=== PATIENT | female | born 1950 | race Asian ===

== ENCOUNTER 2023-06-22 17:38 | Inpatient (IN) | payer MEDICAID ==
[~2023-06-22] VITALS: Ht 149.9 cm; Wt 54.4 kg
[2023-06-22 17:44] VITALS: BP_SYST 182; PULSE 67; RESP 19; TEMP 98; O2SAT 99
[2023-06-22 19:08] LABS: BASOPHILS # (AUTO) 0.2 K/uL (0.0-0.2); EOSINOPHILS # (AUTO) 0.7 K/uL (0.0-0.4); EOSINOPHILS % (AUTO) 4.3 % (0.0-4.0); HEMATOCRIT 36.2 % (36-48); LYMPHOCYTES # (AUTO) 3.4 K/uL (1.0-5.5); LYMPHOCYTES % (AUTO) 21.5 % (20.5-51.5); MEAN CORPUSCULAR HEMOGLOBIN 31 pg (27-31); MEAN CORPUSCULAR HGB CONC 33 % (32-36); MEAN CORPUSCULAR VOLUME 95 fL (79.0-98.0); MONOCYTES # (AUTO) 1.2 K/uL (0.0-1.0); MONOCYTES % (AUTO) 7.6 % (1.7-9.3); NEUTROPHILS # (AUTO) 10.3 K/uL (1.8-7.7); NEUTROPHILS % (AUTO) 65.6 % (40.0-70.0); PLATELET COUNT (AUTO) 322 K/uL (130-430); RED BLOOD CELL COUNT(AUTO) 3.81 MIL/uL (4.2-6.2); WHITE BLOOD COUNT (AUTO) 15.7 K/uL (4.8-10.8)
[2023-06-22 19:28] LABS: ANION GAP 12 (5-15); CALCIUM 11.2 mg/dL (8.4-11.0); CARBON DIOXIDE 32 mmol/L (23-29); CHLORIDE 98 mmol/L (98-107); CREATININE 4.32 mg/dL (0.55-1.30); GLUCOSE 58 mg/dL (74-106); SODIUM SERUM 142 mmol/L (136-145); UREA NITROGEN, BLOOD 17 mg/dL (8-21)
[2023-06-22 19:43] LABS: POTASSIUM 2.7 mmol/L (3.5-5.1)
[2023-06-22] MEDS ORDERED: POTASSIUM CHLORIDE 20 MEQ TABLET.ER PO ONE (20:00)
[2023-06-22] MEDS ORDERED: CLON0.1T PO (21:09)
[2023-06-22] MEDS ORDERED: CALC0.253 PO (21:09)
[2023-06-22] MEDS ORDERED: NIFE-76 PO (21:09)
[2023-06-22] MEDS ORDERED: EPOE20005 (21:09)
[2023-06-22] MEDS ORDERED: METO-542 PO (21:09)
[2023-06-22] MEDS ORDERED: PANT40TA45 PO (21:09)
[2023-06-22] MEDS ORDERED: SUCR1TAB2 PO (21:09)
[2023-06-22] MEDS ORDERED: IRBE300T40 (21:09)
[2023-06-22] MEDS ORDERED: NL (21:09)
[2023-06-22] MEDS ORDERED: ATOR20TA64 PO (21:09)
[2023-06-22] MEDS ORDERED: METO5TAB86 (21:09)
[2023-06-22] MEDS ORDERED: CALC667C4 PO (21:09)
[2023-06-22] MEDS ORDERED: FOLI-43 PO (21:09)
[2023-06-22] MEDS ORDERED: INSU100I26 SUBCUT (21:09)
[2023-06-22] MEDS ORDERED: FOLI0.8T42 PO (21:11)
[2023-06-22] MEDS ORDERED: ACET-2634 PO (21:13)
[2023-06-22] MEDS ORDERED: MONT-40 PO (21:14)
[2023-06-22] MEDS ORDERED: IBUP-1969 PO (21:18)
[2023-06-22] MEDS ORDERED: hydrALAZINE HCL 20 MG/ML VIAL IVP ONE (21:45)
[2023-06-22] MEDS ORDERED: D10W 1,000 ML IV SCH (22:30)
[2023-06-22 23:12] LABS: BILIRUBIN,URINE NEGATIVE (NEGATIVE); BLOOD, URINE 2+ (NEGATIVE); COLOR,URINE YELLOW (YELLOW); GLUCOSE,URINE NEGATIVE (NEGATIVE); KETONES,URINE TRACE (NEGATIVE); LEUKOCYTE ESTERASE ,URINE TRACE (NEGATIVE); NITRITE, URINE NEGATIVE (NEGATIVE); PROTEIN URINE 3+ (NEGATIVE); UROBILINOGEN,URINE 0.2 (0.2-1.0)
[2023-06-22 23:25] LABS: CLARITY/URINE CLOUDY (CLEAR)
[2023-06-22 23:26] LABS: BACTERIA,URINE MODERATE /HPF (None Seen); RBC,URINE >100 /HPF (0-3); WBC,URINE 20-50 /HPF (0-3)
[2023-06-22] MEDS ORDERED: cloNIDine HCL 0.1 MG TABLET ONE (23:51)
[2023-06-23] MEDS ORDERED: cloNIDine HCL 0.1 MG TABLET PO ONE
[2023-06-23] MEDS ORDERED: cloNIDine HCL 0.1 MG TABLET PO PRN (00:15)
[2023-06-23] MEDS ORDERED: cefTRIAXone 1 GM in D5W 50 ML IV SCH (00:15)
[2023-06-23] MEDS ORDERED: ACETAMINOPHEN 500 MG TABLET PO PRN (00:15)
[2023-06-23] MEDS ORDERED: cefTRIAXone 1 GM VIAL ONE (05:47)
[2023-06-23] MEDS ORDERED: NEPHROVITE, (FOLIC ACID/VITAMIN B COMP W-C 1 TAB) PO SCH (09:00)
[2023-06-23] MEDS ORDERED: CALCIUM ACETATE 667 MG CAP PO SCH (09:00)
[2023-06-23] MEDS ORDERED: NIFEdipine 30 MG TAB.ER.24 PO SCH (09:00)
[2023-06-23] MEDS ORDERED: calcitrioL 0.25 MCG CAPSULE PO SCH (09:00)
[2023-06-23] MEDS ORDERED: METOPROLOL SUCCINATE 50 MG TAB.SR.24H (TOPROL XL) PO SCH (09:00)
[2023-06-23] MEDS ORDERED: cloNIDine HCL 0.1 MG TABLET PO SCH (09:00)
[2023-06-23] MEDS ORDERED: ATORVASTATIN 20 MG TABLET PO SCH (09:00)
[2023-06-23] MEDS ORDERED: PANTOPRAZOLE SODIUM 40 MG TAB PO SCH (09:00)
[2023-06-23] MEDS: SUCRALFATE 1 GM TABLET PO SCH ×2 (09:32→14:26)
[2023-06-23 09:53] LABS: ANION GAP 11 (5-15); CALCIUM 10.9 mg/dL (8.4-11.0); CARBON DIOXIDE 27 mmol/L (23-29); CHLORIDE 98 mmol/L (98-107); CREATININE 5.52 mg/dL (0.55-1.30); GLUCOSE 226 mg/dL (74-106); POTASSIUM 3.7 mmol/L (3.5-5.1); SODIUM SERUM 136 mmol/L (136-145); UREA NITROGEN, BLOOD 21 mg/dL (8-21)
[2023-06-23] MEDS ORDERED: cloNIDine HCL 0.2 MG TABLET PO ONE (14:15)
[2023-06-23] MEDS ORDERED: cloNIDine HCL 0.1 MG TABLET ONE (14:25)
[2023-06-23 14:39] VITALS: BP_SYST 169; PULSE 66; RESP 18; TEMP 96.9; O2SAT 96
[2023-06-24] MEDS ORDERED: EPOETIN ALFA 20,000 UNITS/ML VIAL SUBCUT SCH (09:00)
[2023-06-24] MEDS ORDERED: CEFTRIAXONE SOD 1 GM/ D5W 50 ML IV SCH ×2 (09:00)
== END 2023-06-23 14:39 | disposition short-term general hospital (02) | DRG 420 ==
LOC: SED 17:38 → STU 23:06 → SMU 06-23 00:47
PROVIDERS: ADMIT Internal Medicine; ATTEND Internal Medicine
DX: E11.649 Type 2 diabetes mellitus with hypoglycemia without coma (principal); G93.41 Metabolic encephalopathy; I12.0 Hypertensive chronic kidney disease with stage 5 chronic kidney disease or end stage renal disease; E11.22 Type 2 diabetes mellitus with diabetic chronic kidney disease; I16.0 Hypertensive urgency; N18.6 End stage renal disease; E87.6 Hypokalemia; G93.9 Disorder of brain, unspecified; Z20.822 Contact with and (suspected) exposure to COVID-19; Z79.1 Long term (current) use of non-steroidal anti-inflammatories (NSAID); Z79.899 Other long term (current) drug therapy; N39.0 Urinary tract infection, site not specified
CPT/HCPCS: 36415; 70450-TC; 76376; 80048; 81000; 81001; 81015; 82962; 83605; 84484; 85025; 87040; 87086; 93005; 96361; 96374; 99285; G0378; J0360; J0696; J7060